=== PATIENT | female | born 1940 | race African-American/Black ===

== ENCOUNTER 2016-05-30 12:00 | Inpatient (IN) | payer OTHER ==
--- NOTE | ~2016-05-30 | DS ---
Unit #: [id number] #: [id number] Patient: DARIO DAVIS [id number] [address] [address] [id number] I MR#: [id number] NAME: DARIO DAVIS ROOM: 574 Age: 75 Sex: F Admission Date: 05/30/2016 : 1940 Discharge Date: Attending Physician: Maylin Gant M.D. Primary Care Physician: [facility] DISCHARGE SUMMARY ADDENDUM ADDITIONAL DISCHARGE DIAGNOSIS Paroxysmal atrial flutter. HOSPITAL COURSE The patient was maintained in the hospital awaiting precertification. While sleeping last night, she developed atrial flutter which was rate controlled. She spontaneously flipped back to normal sinus rhythm. This was discussed with Dr. Manriquez and we are going to add flecainide 50 mg q.12 hours in addition to Eliquis 5 mg p.o. b.i.d. She needs evaluation for underlying obstructive sleep apnea which is most likely her risk factor for atrial flutter. She will be discharged back to the longterm on previously dictated meds in addition to flecainide and Eliquis. Dictated by... Maylin Gant M.D. MAGGY/chris TD: 06/03/2016 08:10 JOB #: [id number] DISCHARGE SUMMARY Page 1 of 1 X Maylin Gant MD X DISCHARGE SUMMARY
--- NOTE | ~2016-05-30 | EKG ---
PATIENT: DARIO DAVIS UNIT #: [id number] Ventricular Rate: 79 BPM Atrial Rate: 79 BPM P-R Interval: 180 ms QRS Duration: 94 ms Q-T Interval: 378 ms QTC Calculation(Bezet): 433 ms P [place]: 45 degrees Calculated R [place]: 113 degrees Calculated T [place]: 37 degrees Diagnosis Line: Normal sinus rhythm Diagnosis Line: Left posterior fascicular block Diagnosis Line: ST and T wave abnormality, consider anterolateral Diagnosis Line: ischemia Diagnosis Line: Abnormal ECG Diagnosis Line: When compared with ECG of 30-MAY-2016 12:37, Diagnosis Line: No significant change was found Diagnosis Line: Confirmed by KENNEY DALEY MD ([id number]) on Diagnosis Line: 05/31/2016 3:58:03 PM INTERPRETING MD: ADRIAN
--- NOTE | ~2016-05-30 | EKG ---
PATIENT: DARIO DAVIS UNIT #: [id number] Ventricular Rate: 66 BPM Atrial Rate: 66 BPM P-R Interval: 180 ms QRS Duration: 90 ms Q-T Interval: 396 ms QTC Calculation(Bezet): 415 ms P [place]: 55 degrees Calculated R [place]: 109 degrees Calculated T [place]: 11 degrees Diagnosis Line: Normal sinus rhythm Diagnosis Line: Rightward axis Diagnosis Line: T wave abnormality, consider anterior ischemia Diagnosis Line: Abnormal ECG Diagnosis Line: When compared with ECG of 01-JUN-2016 05:45, Diagnosis Line: No significant change was found Diagnosis Line: Confirmed by ANTONI WINTER MD ([id number]) on 06/03/2016 Diagnosis Line: 7:05:55 PM INTERPRETING MD: MAGGY PARK
--- NOTE | ~2016-05-30 | CT4 ---
[facility] A Service of [facility] RADIOLOGY TEXT RESULTS PATIENT: DARIO DAVIS LOCATION: [facility] 574-01 : [birth year] UNIT #: [id number] AGE: [address]: Maylin Gant MD SEX: F ORDER DR: [id number] [facility] [address] [place], [place] [address] [id number] I MR#: [id number] Acc #: [id number] NAME: DARIO DAVIS : 1940 SEX: F STUDY DATE/TIME: 05/30/2016 11:34 UNIT: [facility] ROOM: 4 STUDY DESCRIPTION: CT Abd and Pelv Wo Cont Attending Physician: Mattie Velazquez M.D. Ordering Physician: Wenceslao Cardoso M.D. Primary Care Physician: [facility] MEDICAL IMAGING REPORT This report is preliminary unless electronic signature is present EXAM CT of the abdomen and pelvis without contrast INDICATION Vomiting for 8 hours. No bowel sounds. No ostomy output for [address] images were obtained from the dome of the diaphragm through the symphysis pubis. No oral or intravenous contrast material was administered. This CT examination was performed with one or more of the following radiation dose reduction techniques: automatic exposure control, adjustment of mA and/or kV according to patient size, and iterative reconstruction. FINDINGS Images through the lung bases demonstrate some background emphysematous changes. Main pulmonary artery is enlarged measuring up to 3.5 cm. This finding is nonspecific but can be seen in the setting of pulmonary arterial hypertension. There is a small hiatal hernia. Proximal small bowel is within normal limits. Gallbladder is surgically absent. Spleen and liver appear unremarkable given unenhanced technique. Right kidney also appears normal given unenhanced technique. Left kidney is not visualized. Pancreas is mildly atrophic. No free fluid or adenopathy is seen within the abdomen or pelvis. Uterus is surgically absent. Urinary bladder appears unremarkable. There is a left lower quadrant colostomy although I do not see any evidence of obstruction. There is a large parastomal hernia which contains loops of what I think are probably small bowel but again I do not see any convincing evidence of obstruction. No pneumatosis or free air is seen. Patient also has a bowel containing umbilical hernia again without convincing evidence of obstruction. [facility] A Service of [facility] RADIOLOGY TEXT RESULTS PATIENT: DARIO DAVIS LOCATION: [facility] 574-01 : 44 UNIT #: [id number] AGE: [address]: Maylin Gant MD SEX: F ORDER DR: Review of bony windows demonstrates fairly advanced degenerative changes involving the right hip. No aggressive osseous abnormalities are seen. IMPRESSION 1. Left lower quadrant ostomy without convincing evidence of obstruction. Patient does have a large parastomal hernia which appears to contain loops of small bowel, again without any evidence of obstruction. 2. Patient also has a small bowel containing umbilical hernia again without any evidence of obstruction. 3. Colonic diverticulosis without evidence of diverticulitis. 4. Left kidney is absent. 5. Small hiatal hernia. 6. Enlargement of the main pulmonary artery which can be seen in the setting of pulmonary arterial hypertension. 7. Changes of prior cholecystectomy and appendectomy. Dictated by... Izabella Hanson M.D. THIS IS AN ELECTRONICALLY VERIFIED REPORT Izabella Hanson M.D. at 06/02/2016 1:00 PM CHAYO/chidi TD: 05/31/2016 06:55 JOB #: [id number] MEDICAL IMAGING REPORT Page 1 of 1 COPY
--- NOTE | ~2016-05-30 | BMI ---
[facility] Nutrition Therapy DATE: 06/01/16 Patient: DARIO DAVIS Physician: ZEFERINO Address: [address] [facility] [facility] Room/Bed: [address] [place] [address], Zip: [place] [address] Admit Date: 05/30/16 Date of : [birth year] Height: 5 3 Weight: 317 144.1 HIGH BMI NOTE: DX: 75 yo female admitted for N/V ANTHROPOMETRICS: Ht: 5'3" Wt: 144.1 kg (317#) BMI: 56.3 DIET: Clear liquid INTERVENTION: 1. Clear liquid RECOMMENDATIONS: 1. Once medically feasible, advance diet as tolerated to healthy heart to promote gradual weight loss towards healthy BMI. RD will f/u per protocol. Respectfully, Emelia Zhang, Tool Repair Technician Jose Pascal MS, RD, LD [facility] cc: client file
--- NOTE | ~2016-05-30 | CO ---
Unit #: [id number] #: [id number] Patient: DARIO DAVIS [id number] [address] [place], [place] [address] [id number] I MR#: [id number] NAME: DARIO DAVIS ROOM: 574 Age: 75 Sex: F Admission Date: 05/30/2016 : 1940 Attending Physician: Mattie Velazquez M.D. Primary Care Physician: [facility] Consultation Date: 05/31/2016 CONSULTATION REPORT REASON FOR CONSULTATION Abnormal EKG, elevated troponin. HISTORY OF PRESENT ILLNESS This is a 75-year-old female with history of immobility syndrome. She is currently residing at [facility]. She had a diverting colostomy for a sacral wound a couple of years ago. She is morbid obese with a weight of 317 pounds. She has degenerative joint disease. Her last echo a couple of years ago, showed LVEF of 55%. She has hypertension, hyperlipidemia, reformed smoker. She was sent from the long term for a 2-day history of nausea, vomiting, and mid epigastric discomfort. She has colostomy and there had not been a bowel movement for 2 days, but she stated that on the way to the emergency room by EMS that she had a fairly good bowel movement. The patient denies any substernal chest pain. No pain in her neck; bilateral jaws, shoulders, arms, or elbow. She denies any palpitations. No dizziness, presyncope, or syncope. In the emergency room, the patient's blood pressure was 168/100, heart rate was 88, respirations 18, temperature 97.5. The patient had a CT of abdomen and pelvis that showed a parastomal hernia with no evidence of bowel obstruction. Also on admission the patient's BUN is 23, creatinine 1.3, and potassium was 6.3. The patient was given calcium gluconate, amp of bicarbonate, 15 g of Kayexalate, 10 units of insulin, and was also treated with some albuterol and Lasix in the emergency room. The patient's baseline creatinine noted was back a couple of years ago was 0.7. The patient's cardiac enzymes came back elevated with a CK total 174 and troponin 0.17, CK total 129, percentage of MB is 2.8, and troponin 0.13. The patient's EKG shows normal sinus rhythm with left anterior fascicular block with T-wave inversion throughout V1 through V6 and also in the inferior leads. Cardiology has been consulted to assist with evaluation and management. PAST MEDICAL HISTORY 1. History of immobility syndrome, she is a long term resident. 2. History of sacral decubitus ulcer with extensive debridement and had a diverting colostomy. 3. Degenerative joint disease. 4. History of left nephrectomy at age 4. 5. Hypertension. 6. Hyperlipidemia. 7. In 03/2013, 2D echo, LVEF of 55% with mild left ventricular hypertrophy, mild tricuspid regurgitation, elevated RVSP of 30 to 40 mmHg. 8. Wheelchair bound. Unit #: [id number] #: [id number] Patient: DARIO DAVIS 9. Reformed smoker. 10. Morbid obesity with weight of 317 pounds with a BMI of 56. PAST SURGICAL HISTORY 1. In 2013 had wide debridement and followed by wide debridement of a stage IV sacral decubitus ulcer with exploratory laparotomy and sigmoid loop colostomy. 2. Total abdominal hysterectomy. 3. Cholecystectomy. 4. Left nephrectomy at age 4. HOME MEDICATIONS Celebrex 100 mg p.o. daily, chlorophyll 0.6 three tablets at bedtime, Flonase 16 g nasally b.i.d., Lasix 20 mg p.o. daily, hydrocodone and acetaminophen 5/325 one tablet p.o. t.i.d., Claritin 10 mg p.o. at bedtime, MAGnesium-Oxide 420 mg p.o. daily, [place] nasal spray inhalation b.i.d., simethicone 125 mg p.o. daily, vitamin minerals one tablet p.o. daily, hydrocodone and acetaminophen 5/325 one tablet p.o. every 8 hours for breakthrough pain p.r.n., MiraLax p.r.n., albuterol sulfate inhalation every 4 hours p.r.n., ipratropium and albuterol inhalation every 4 hours p.r.n. ALLERGIES No known drug allergies. SOCIAL HISTORY The patient currently is residing at [facility]. She is pretty much chair and wheelchair bound. She says she does get up with assistance only. She has immobility syndrome. She quit smoking a few years back. No alcohol or illicit drug abuse. FAMILY HISTORY Her mother had diabetes. She is an only child. Her father, she is not sure of his health issues. REVIEW OF SYSTEMS See details in HPI. PHYSICAL EXAMINATION GENERAL: Ms. Davis is a 75-year-old female, in no acute respiratory distress. She is awake, alert, answers most questions appropriately. VITAL SIGNS: Blood pressure is 144/86, heart rate 68, respirations 18, temperature 98.0, O2 saturations 97% on room air. NECK: Trachea midline. No thyromegaly or lymphadenopathy. Normal carotid upstrokes. No jugular venous distention. HEART: S1, S2. Regular rate and rhythm. No clicks, murmurs, or rubs. LUNGS: Diminished due to body habitus. ABDOMEN: Obese, soft, hypoactive bowel sounds are present in lower quadrants. Colostomy noted, has a small amount of dark brown stool. EXTREMITIES: Pedal pulses are palpable. 1+ pedal edema. DIAGNOSTIC STUDIES LABORATORY RESULTS: Glucose is 140, BUN 22, creatinine 1.1, eGFR is 57.7, sodium 141, potassium 5.0, chloride is 99, CO2 of 34, and calcium is 8.3. Magnesium is 2.1, total protein 7.3, albumin 3.5, bilirubin total 0.5, AST 31, ALT 27, alkaline phosphatase is 94. WBCs is 11.1, hemoglobin 10.9, hematocrit 36.3, and platelets is 148. Initial cardiac enzymes are Unit #: [id number] #: [id number] Patient: DARIO DAVIS pending. Urinalysis, trace of leuk esterase, trace of protein, 0.2 urobilinogen, 1+ blood, 5 to 10 wbc's. Initial cardiac enzymes are her CK total is 174, MB is 4.2, percentage of MB 2.4, and troponin 0.17. CK total is 129, MB is 3.6, percentage of MB 2.8, troponin 0.13. Urine culture is pending. IMAGING STUDIES: Chest x-ray, preliminary report, unremarkable. Her CT of abdomen and pelvis shows a left lower quadrant ostomy without evidence of obstruction, does have a large parastomal hernia. No evidence of obstruction, small bowel contained umbilical hernia without any evidence of obstruction. Colonic diverticulosis, left kidney is absent. Enlargement of the main pulmonary artery which can be seen in the setting of pulmonary artery hypertension and small hiatal hernia. CARDIOVASCULAR STUDIES: EKG shows normal sinus rhythm with ventricular rate 84 beats per minute, left anterior fascicular block, ST-T wave abnormalities, T-wave inversion in anterolateral and inferior leads. IMPRESSION 1. Elevated troponin, acute coronary syndrome. 2. Abnormal EKG. 3. Nausea, vomiting, and absent stool from colostomy. 4. Hyperkalemia. 5. History of hypertension. 6. Hyperlipidemia. 7. Immobility syndrome, long term patient. 8. Solitary kidney. 9. Left ventricular ejection fraction of 55% with 2D echo in 2014 with mild left ventricular hypertrophy, mild tricuspid regurgitation. 10. Morbid obesity, weight 317 pounds. 11. Reformed smoker. PLAN 1. Cardiology consult to assist with evaluation and management. She has acute coronary syndrome, the patient started on aspirin 81 mg p.o. daily. So far, the patient had some stool since admission, she has positive bowel sounds in the lower quadrants and she said her nausea and vomiting are improving. 2. We will also add Lovenox 120 mg p.o. daily for therapeutic dosing. We will add beta-bakari, metoprolol 25 mg p.o. b.i.d. for better blood pressure control and also beta-bakari for possible CAD. 3. We will obtain a TSH and fasting lipid profile and evaluate. 4. On exam, the patient has no signs or symptoms of angina; however, with her abnormal EKG and her troponin, the patient suggests that the patient have ischemic heart disease workup. Discussed at length with the patient about heart catheterization. Discussed with the patient about risks and benefits including risk of bleeding, myocardial infarction, stroke, and even . The patient wants to think about it and talk to her daughter and make a decision later. 5. Encourage the patient to lose weight. We recommend a weight reducing calorie count diet and low cholesterol diet. 6. The patient's hyperkalemia has been treated and her latest potassium is 5.0. 7. On exam, there are no signs or symptoms of acute congestive heart failure. Unit #: [id number] #: [id number] Patient: DARIO DAVIS 8. Further recommendations pending per Dr. Mendoza. Dictated by... Tiff Raymundo A.P.R.N. KAMILLE/josseline TD: 06/01/2016 02:29 JOB #: [id number] CONSULTATION REPORT Page 1 of 1 X Tiff Raymundo APRN CONSULTATION REPORT
--- NOTE | ~2016-05-30 | EKG ---
PATIENT: DARIO DAVIS UNIT #: [id number] Ventricular Rate: 66 BPM Atrial Rate: 66 BPM P-R Interval: 184 ms QRS Duration: 94 ms Q-T Interval: 412 ms QTC Calculation(Bezet): 431 ms P [place]: 48 degrees Calculated R [place]: 105 degrees Calculated T [place]: -3 degrees Diagnosis Line: Normal sinus rhythm Diagnosis Line: Rightward axis Diagnosis Line: ST and T wave abnormality, consider anterolateral Diagnosis Line: ischemia Diagnosis Line: Abnormal ECG Diagnosis Line: When compared with ECG of 31-MAY-2016 09:20, Diagnosis Line: No significant change was found Diagnosis Line: Confirmed by ANTONI WINTER MD ([id number]) on 06/02/2016 Diagnosis Line: 5:33:43 AM INTERPRETING MD: MAGGY PARK
--- NOTE | ~2016-05-30 | EKG ---
PATIENT: DARIO DAVIS UNIT #: [id number] Ventricular Rate: 86 BPM Atrial Rate: 86 BPM P-R Interval: 186 ms QRS Duration: 84 ms Q-T Interval: 368 ms QTC Calculation(Bezet): 440 ms P [place]: 45 degrees Calculated R [place]: 118 degrees Calculated T [place]: 28 degrees Diagnosis Line: Normal sinus rhythm Diagnosis Line: Left posterior fascicular block Diagnosis Line: ST and T wave abnormality, consider anterolateral Diagnosis Line: ischemia Diagnosis Line: Abnormal ECG Diagnosis Line: When compared with ECG of 16-JAN-2014 18:38, Diagnosis Line: Left posterior fascicular block is now Present Diagnosis Line: T wave inversion now evident in Anterolateral Diagnosis Line: leads Diagnosis Line: Confirmed by MAGGY PARK, ANTONI ([id number]) on 05/31/2016 Diagnosis Line: 7:18:32 AM INTERPRETING MD: MAGGY PARK
--- NOTE | ~2016-05-30 | HP ---
Unit #: [id number] #: [id number] Patient: DARIO DAVIS [id number] [place], [place] [address] [id number] E MR#: [id number] NAME: DARIO DAVIS ROOM: Age: 75 Sex: F Admission Date: 05/30/2016 : 1940 Attending Physician: Wencelsao Cardoso M.D. Primary Care Physician: Ivelisse Christiansonmiriam hospitallayne [facility] HISTORY AND PHYSICAL CHIEF COMPLAINT Vomiting, no bowel sounds, no output from colostomy times 2 days. HISTORY OF PRESENT ILLNESS The patient is a 75-year-old female with past medical history of sacral decubitus ulcer, immobility, degenerative joint disease, who presented to the emergency department from the long term for evaluation of the above. The patient has had a 3-day history of vomiting. She reports three bouts of nonbloody emesis within the past 24 hours. She denies any abdominal pain. She has not had any ostomy output. She denies any fever. No cough or cold symptoms. No urinary symptoms. In the emergency department, a CT of the abdomen and pelvis was done and showed parastomal hernia with no evidence of bowel obstruction. Laboratory notable for potassium of 6.3, BUN 23, creatinine 1.3. She is being admitted to [facility] for evaluation and further treatment. PAST MEDICAL HISTORY 1. Admission to [facility] 01/16 through 01/31/2014 for large infected stage 4 sacral decubitus ulcer. She underwent wide debridement and saucerization followed by exploratory laparotomy, sigmoid loop colostomy. 2. Immobility. 3. Degenerative joint disease. 4. Echocardiogram, 01/17/2014, was technically limited but showed an ejection fraction of 55% with mild concentric left ventricular hypertrophy, mild tricuspid regurgitation, elevated right ventricular systolic pressure at 30-40 mmHg. PAST SURGICAL HISTORY 1. Left nephrectomy. 2. Cholecystectomy. 3. Total abdominal hysterectomy. 4. Wide debridement and saucerization of sacral decubitus ulcer followed by exploratory laparotomy and sigmoid loop colostomy. ALLERGIES No known allergies. HOME MEDICATIONS 1. Celebrex. 2. Chlorophyll. Unit #: [id number] #: [id number] Patient: DARIO DAVIS 3. Flonase. 4. Lasix. 5. Hydrocodone. 6. Claritin. 7. Magnesium. 8. [place] Nasal [place]. 9. Simethicone. 10. Multivitamin. 11. MiraLAX. 12. Albuterol. 13. DuoNeb. Home medications will need to be reviewed and verified. SOCIAL HISTORY The patient is at a long term. She has a wheelchair and a walker. There is no alcohol use. She is a former smoker. Her code status is a FULL CODE. FAMILY HISTORY Notable for her mother having diabetes. REVIEW OF SYSTEMS A complete review of systems is negative except as indicated in the HPI. PHYSICAL EXAMINATION VITAL SIGNS: Temperature 97.5, pulse 88, respirations 21, blood pressure 168/103. GENERAL: The patient is an female who is awake and alert in no acute distress. HEENT: Head is atraumatic. Mucous membranes are dry. NECK: Supple. Trachea is midline. LUNGS: Clear to auscultation bilaterally with no increased work of breathing. HEART: Regular rate and rhythm. ABDOMEN: Soft, nontender with decreased bowel sounds. There is a colostomy bag in place with no stool. EXTREMITIES: Nontender with no pedal edema. NEUROLOGIC: Patient is awake and alert. She is oriented x3. She follows commands. PSYCHIATRIC: Mood and affect are normal. Patient is cooperative. SKIN: The sacral area demonstrates a large defect that appears to be healing. DIAGNOSTIC STUDIES LABORATORY: Comprehensive metabolic panel notable for potassium 6.3, chloride 98, glucose 170, BUN 23, creatinine 1.3, alkaline phosphatase 113. Amylase and lipase are normal. Complete blood count notable for white blood cell count of 11.5, hemoglobin 11.7, hematocrit 38.6. IMAGING: CT of the abdomen and pelvis shows a parastomal hernia with no evidence of obstruction. ASSESSMENT The patient is a 75-year-old female with: 1. Nausea and vomiting. 2. Hyperkalemia with a potassium of 6.3. The patient received calcium gluconate, an amp of bicarbonate, 15 grams of Kayexalate, 10 units of Unit #: [id number] #: [id number] Patient: DARIO DAVIS insulin as well as albuterol and Lasix in the emergency department. Additionally, she received a 1 L normal saline bolus. 3. Acute kidney injury. The patient's creatinine was 0.7 on 01/30/2014, it is 1.3 today. 4. History of sacral decubitus ulcer, status post wide debridement, saucerization and sigmoid loop colostomy. 5. Immobility. 6. Degenerative joint disease. PLAN 1. Admit to intermediate level for observation. 2. Advance diet to clear liquids as tolerated. 3. Normal saline at 75 mL per hour. 4. P.r.n. Zofran. 5. Repeat BMP later this evening to follow up hyperkalemia. 6. Check EKG and cardiac enzymes. 7. Urinalysis with culture and sensitivity. 8. Strict I's and O's. 9. SCDs for DVT prophylaxis. 10. Check magnesium level. 11. P.r.n. hydralazine. 12. Repeat labs in the morning. 13. Regarding CODE STATUS, the patient is a FULL CODE. 14. Additional workup and consultants based on above. Dictated by Serafin Londono/[place] TD: 05/30/2016 16:48 JOB #: [id number] HISTORY AND PHYSICAL Page 1 of 1 X Mattie Velazquez MD X HISTORY AND PHYSICAL
--- NOTE | ~2016-05-30 | DS ---
Unit #: [id number] #: [id number] Patient: DARIO JUDD [id number] [address] [address] [id number] I MR#: [id number] NAME: DARIO JUDD ROOM: 574 Age: 75 Sex: F Admission Date: 05/30/2016 : 1940 Discharge Date: 06/02/2016 Attending Physician: Maylin Gant M.D. Primary Care Physician: [facility] DISCHARGE SUMMARY PRINCIPAL DIAGNOSES 1. Acute coronary syndrome with negative left-sided heart catheterization. 2. Hyperkalemia, resolved. 3. Nausea and vomiting, likely secondary to reflux. 4. Decreased ostomy output, resolved spontaneously. 5. Hypertension. 6. Chronic thrombocytopenia. Discharge platelet count 130,000. 7. Acute kidney injury, prerenal. Discharge creatinine 1.0. 8. Normocytic anemia. 9. Chronic immobility. 10. Morbid obesity. 11. Probable obstructive sleep apnea. 12. Degenerative joint disease. 13. History of infected stage 4 sacral decubitus ulcer. 14. Hyperlipidemia. CONSULTANTS Dr. Manriquez, cardiology. PROCEDURES PERFORMED Left-sided heart catheterization on 06/02/2016, which was normal. DIAGNOSTIC DATA IMAGING: CT scan of the abdomen and pelvis without contrast on 05/30/2016 with left lower quadrant ostomy without evidence of obstruction. Parastomal hernia is noted. Diverticulosis noted. Absent left kidney noted. Enlargement of main pulmonary artery, consistent with pulmonary arterial hypertension. CLINICAL HISTORY/HOSPITAL COURSE Ms. Judd is a very nice 75-year-old female sent from the rehab facility with nausea, vomiting and poor output from her colostomy site. Please refer to history and physical for further details. CT scan of the abdomen and pelvis in the emergency department had findings as noted. In the emergency room she was also found to have a potassium of 6.3 and a mild elevation of creatinine of 1.3. She was subsequently admitted. In regard to the patient's nausea and vomiting, she was placed on PPI therapy. She began having spontaneous output from her ostomy site. The nausea and vomiting have resolved. Will continue her on PPI therapy, given she is high risk for reflux and otherwise continue on medications for output from her ostomy as noted. Unit #: [id number] #: [id number] Patient: DARIO JUDD Due to her complaints of nausea, the patient did have a troponin checked in the emergency department and it returned at 0.17. It trended down on day prior to discharge at 0.10. She has multiple risk factors for coronary artery disease and, thus, cardiology was consulted. Ultimately the patient underwent heart catheterization which did not reveal any significant blockage. We will continue her on medical therapy. The patient also developed some mild acute kidney injury during hospitalization, which appears to be prerenal. On day of discharge creatinine is now 1.0. She will be discharged back to the facility today. DISCHARGE CONDITION Stable. DISPOSITION Discharge to rehab. DISCHARGE MEDICATIONS 1. Duo-neb nebulizer treatments q.4 h. p.r.n. shortness of breath. 2. Magnesium oxide 420 mg p.o. daily. 3. Flonase 0.05% nasal spray, 1 spray per nostril b.i.d. 4. Simethicone 125 mg p.o. daily. 5. Claritin 10 mg daily. 6. Metoprolol tartrate 25 mg b.i.d. 7. MiraLAX 17 g p.o. daily p.r.n. constipation. 8. Lasix 20 mg p.o. daily. 9. Lipitor 80 mg daily. 10. Aspirin 81 mg daily. 11. Colbert 5/325 mg 1 tablet p.o. t.i.d. p.r.n. pain. 12. Protonix 40 mg daily. 13. Chlorophyl 0.6 three tablets at bedtime for colostomy odor. 14. [place] Nasal [place] 2 sprays per nostril b.i.d. 15. Daily multivitamin. DISCHARGE INSTRUCTIONS The patient was instructed to follow a heart-healthy diet. ACTIVITY She can increase her increase her activity as tolerated. Will continue ostomy care as she was doing previously. FOLLOWUP 1. The patient will follow up with Dr. Manriquez in approximately three months. 2. She will follow up with her primary care provider in two to three weeks. Dictated by... Maylin Gant M.D. Evelyne TD: 06/02/2016 14:03 JOB #: [id number] Unit #: [id number] #: [id number] Patient: DARIO JUDD DISCHARGE SUMMARY Page 1 of 1 X Maylin Gant MD X DISCHARGE SUMMARY
[2016-05-30 11:40] LABS: BASOPHIL% 0.2 % (0-2.5); HEMATOCRIT 38.6 % (35.0-45.0); HEMOGLOBIN 11.7 gm/dL (12.0-16.0); LYMPHOCYTE# 0.9 X10e3 (1.0-3.5); LYMPHOCYTE% 8.1 % (17.0-45.0); MEAN CELL VOLUME 80.2 FL (83-96); MEAN CORPUSCULAR HEMOGLOBIN 24.3 PG (28-34); MEAN CORPUSCULAR HGB CONC 30.4 g/dL (30-36); MEAN PLATELET VOLUME 9.5 FL (6.5-11.5); MONOCYTE# 0.5 X10e3 (0-1.0); MONOCYTE% 3.9 % (3.0-12.0); NEUTROPHIL# 10.1 X10e3 (1.5-7.1); NEUTROPHIL% 87.8 % (40-75); PLATELET COUNT 155 X10e3 (140-420); RED BLOOD COUNT 4.82 X10e (3.90-5.30); RED CELL DISTRIBUTION WIDTH 15.8 % (11.0-15.5); WHITE BLOOD COUNT 11.5 X10e3 (4.0-10.5)
[2016-05-30 11:42] LABS: DIFF IND YES
[~2016-05-30 12:00] MED LIST: HCTZ PO; NORVASC PO
[2016-05-30 12:13] LABS: ALBUMIN SERUM 3.9 g/dL (3.5-5.0); BILIRUBIN, DIRECT 0.1 mg/dL (0.0-0.2); BILIRUBIN,INDIRECT 0.5 mg/dL (0.0-0.9); BILIRUBIN,TOTAL 0.6 mg/dL (0.2-2.0); BUN/CREATININE RATIO 17.69; CALCIUM SERUM 8.9 mg/dL (8.4-10.2); CREATININE SERUM 1.3 mg/dL (0.6-1.4); GLOM FILT RATE Estimated 47.1 mL/min (>60); PROTEIN TOTAL SERUM 8.2 g/dL (6.0-8.3)
[2016-05-30 12:14] LABS: POTASSIUM 6.3 mmol/L (3.5-5.1)
[2016-05-30 12:18] LABS: PLATELET ESTIMATE NORMAL (NORMAL)
[2016-05-30] MEDS ORDERED: CELEBREX100 MG PO (13:12)
[2016-05-30] MEDS ORDERED: CHLOROPHYLL (13:22)
[2016-05-30] MEDS ORDERED: FLONASE 0.05% N16 G1 (13:24)
[2016-05-30] MEDS ORDERED: HYDROCODON-ACE1 EAC7 PO ×2 (13:24→13:28)
[2016-05-30] MEDS ORDERED: LASIX20 MG PO (13:24)
[2016-05-30] MEDS ORDERED: CLARITIN10 M3 PO (13:25)
[2016-05-30] MEDS ORDERED: MAGNESIUM OXID420 MG PO (13:25)
[2016-05-30] MEDS ORDERED: OCEAN NASAL SPRAY INH (13:26)
[2016-05-30] MEDS ORDERED: GAS RELIEF125 MG PO (13:26)
[2016-05-30] MEDS ORDERED: VITAMINS PO (13:27)
[2016-05-30] MEDS ORDERED: MINERALS PO (13:27)
[2016-05-30] MEDS ORDERED: MIRALAX119 GM PO (13:28)
[2016-05-30] MEDS ORDERED: IPRAT-ALBUT 0.5-3 ML INH (13:30)
[2016-05-30] MEDS ORDERED: ALBUTEROL1.25 MG/3 INH (13:30)
[2016-05-30 15:27] LABS: URINE SOURCE CLEAN CATCH
[2016-05-30 15:34] LABS: URINE APPEARANCE CLEAR; URINE BILIRUBIN NEG (NEG); URINE BLOOD 1+ (NEG); URINE COLOR YELLOW; URINE GLUCOSE NEG (NEG); URINE KETONE NEG (NEG); URINE LEUKOCYTE ESTERASE TRACE (NEG); URINE NITRATE NEG (NEG); URINE PH 5.5 (5-8); URINE PROTEIN TRACE (NEG); URINE SPECIFIC GRAVITY 1.007 (1.003-1.035); URINE UROBILINOGEN 0.2 MG/DL (NEG)
[2016-05-30 15:37] LABS: CULTURE INDICATED? YES; U HYALINE CASTS AUWI 0-2 /[LPF]; URINE BACTERIA AUWI NEG (NEGATIVE); URINE SQUAMOUS EPITHELIAL CELL OCC /[HPF]
[2016-05-30 17:48] LABS: %MB 2.4 % (0.0-4.0); MB 4.2 ng/ml
[2016-05-30 18:40] LABS: BUN/CREATININE RATIO 15.71; CALCIUM SERUM 8.6 mg/dL (8.4-10.2); CREATININE SERUM 1.4 mg/dL (0.6-1.4); GLOM FILT RATE Estimated 43.1 mL/min (>60); POTASSIUM 5.4 mmol/L (3.5-5.1)
[2016-05-31 01:38] LABS: %MB 2.6 % (0.0-4.0); MB 3.8 ng/ml
[2016-05-31 07:47] LABS: HEMATOCRIT 36.3 % (35.0-45.0); HEMOGLOBIN 10.9 gm/dL (12.0-16.0); MEAN CELL VOLUME 80.1 FL (83-96); MEAN CORPUSCULAR HEMOGLOBIN 24.1 PG (28-34); MEAN CORPUSCULAR HGB CONC 30.1 g/dL (30-36); MEAN PLATELET VOLUME 9.2 FL (6.5-11.5); RED BLOOD COUNT 4.54 X10e (3.90-5.30); RED CELL DISTRIBUTION WIDTH 15.9 % (11.0-15.5); WHITE BLOOD COUNT 11.1 X10e3 (4.0-10.5)
[2016-05-31 08:25] LABS: ALBUMIN SERUM 3.5 g/dL (3.5-5.0); BILIRUBIN,TOTAL 0.5 mg/dL (0.2-2.0); CALCIUM SERUM 8.3 mg/dL (8.4-10.2); CREATININE SERUM 1.1 mg/dL (0.6-1.4); GLOM FILT RATE Estimated 57.7 mL/min (>60); PROTEIN TOTAL SERUM 7.3 g/dL (6.0-8.3)
[2016-05-31 08:45] LABS: %MB 2.8 % (0.0-4.0); MB 3.6 ng/ml
[2016-05-31 10:35] LABS: CHOLESTEROL 179 mg/dL (0-200); HDL CHOLESTEROL 43 mg/dL (35-95); LDL CHOLESTEROL 119 mg/dL (-130); LDL/HDL RATIO 3 RATIO (0-4); TRIGLYCERIDES 87 mg/dL (10-160)
[2016-06-01 05:17] LABS: HEMATOCRIT 34.6 % (35.0-45.0); HEMOGLOBIN 10.7 gm/dL (12.0-16.0); MEAN CELL VOLUME 79.6 FL (83-96); MEAN CORPUSCULAR HEMOGLOBIN 24.6 PG (28-34); MEAN CORPUSCULAR HGB CONC 30.8 g/dL (30-36); MEAN PLATELET VOLUME 8.9 FL (6.5-11.5); RED BLOOD COUNT 4.34 X10e (3.90-5.30); RED CELL DISTRIBUTION WIDTH 15.4 % (11.0-15.5); WHITE BLOOD COUNT 8.8 X10e3 (4.0-10.5)
[2016-06-01 06:47] LABS: BUN/CREATININE RATIO 25.55; CALCIUM SERUM 7.9 mg/dL (8.4-10.2); CREATININE SERUM 0.9 mg/dL (0.6-1.4); GLOM FILT RATE Estimated 73.6 mL/min (>60); POTASSIUM 4.5 mmol/L (3.5-5.1)
[2016-06-02 05:36] LABS: HEMATOCRIT 34.3 % (35.0-45.0); HEMOGLOBIN 10.5 gm/dL (12.0-16.0); MEAN CORPUSCULAR HEMOGLOBIN 24.6 PG (28-34); MEAN CORPUSCULAR HGB CONC 30.7 g/dL (30-36); MEAN PLATELET VOLUME 9.3 FL (6.5-11.5); RED BLOOD COUNT 4.28 X10e (3.90-5.30); RED CELL DISTRIBUTION WIDTH 15.5 % (11.0-15.5); WHITE BLOOD COUNT 8.8 X10e3 (4.0-10.5)
[2016-06-02 06:21] LABS: INR 1.6; PARTIAL THROMBOPLASTIN TIME 32.2 SECONDS (23.5-31.3); PROTHROMBIN TIME (PATIENT) 17.7 SECONDS (9.6-11.5)
[2016-06-02 08:48] LABS: CALCIUM SERUM 8.1 mg/dL (8.4-10.2); GLOM FILT RATE Estimated 64.8 mL/min (>60)
== END 2016-06-03 20:33 | DRG 287 ==
LOC: CED 12:00 → CEDOF 15:15 → C5C 22:51
PROVIDERS: Emergency Medicine; Family Medicine; Internal Medicine Cardiovascular Disease
PROC: 4A023N7 Measurement of Cardiac Sampling and Pressure, Left Heart, Percutaneous Approach (ICD-10-PCS; principal; 2016-06-02)
PROC: B2151ZZ Fluoroscopy of Left Heart using Low Osmolar Contrast (ICD-10-PCS; 2016-06-02)
PROC: B2111ZZ Fluoroscopy of Multiple Coronary Arteries using Low Osmolar Contrast (ICD-10-PCS; 2016-06-02)
DX: I24.9 Acute ischemic heart disease, unspecified (principal); N17.9 Acute kidney failure, unspecified; D69.6 Thrombocytopenia, unspecified; I48.92 Unspecified atrial flutter; Z68.43 Body mass index [BMI] 50.0-59.9, adult; E87.5 Hyperkalemia; K21.9 Gastro-esophageal reflux disease without esophagitis; I10 Essential (primary) hypertension; J44.9 Chronic obstructive pulmonary disease, unspecified; E66.01 Morbid (severe) obesity due to excess calories; G47.33 Obstructive sleep apnea (adult) (pediatric); Z90.5 Acquired absence of kidney; K43.5 Parastomal hernia without obstruction or gangrene; Z90.49 Acquired absence of other specified parts of digestive tract; R11.2 Nausea with vomiting, unspecified; M62.3 Immobility syndrome (paraplegic); Z99.3 Dependence on wheelchair
CPT/HCPCS: 74176; 80048; 80053; 80061; 80076; 81003; 82150; 82550; 82553; 82947; 83690; 83735; 84443; 84484; 85025; 85027; 85610; 85730; 87086; 93005; 94640; 94760; 96361; 96374; 99291; C1769; C1887; C1894; J0610; J1644; J1650; J1940; J2250; J2405; J3010

== ENCOUNTER 2016-06-14 13:20 | Inpatient (IN) | payer OTHER ==
--- NOTE | ~2016-06-14 | EKG ---
PATIENT: ADRIO DAVIS UNIT #: [id number] Ventricular Rate: 78 BPM Atrial Rate: 78 BPM P-R Interval: 192 ms QRS Duration: 94 ms Q-T Interval: 394 ms QTC Calculation(Bezet): 449 ms P [place]: 48 degrees Calculated R [place]: 114 degrees Calculated T [place]: -31 degrees Diagnosis Line: Normal sinus rhythm Diagnosis Line: Right axis deviation Diagnosis Line: T wave abnormality, consider inferior ischemia Diagnosis Line: T wave abnormality, consider anterolateral Diagnosis Line: ischemia Diagnosis Line: Abnormal ECG Diagnosis Line: When compared with ECG of 14-JUN-2016 13:14, Diagnosis Line: [place] interval has decreased Diagnosis Line: Questionable change in QRS duration Diagnosis Line: Confirmed by GRAY MELGAR MD ([id number]) on 06/17/2016 Diagnosis Line: 9:38:39 AM INTERPRETING MD: TALIA PARK
--- NOTE | ~2016-06-14 | FU ---
[facility] Nutrition Therapy DATE: 06/17/16 Patient: DARIO DAVIS Physician: MARCO ANTONIO Address: [facility] Room/Bed: [address] [place] [address], Zip: [place] [address] Admit Date: 06/14/16 Date of : [birth year] Height: 5 3 Weight: 319 145 NUTRITION MONITORING/FOLLOW-UP: Reason: Nutrition follow up Anthropometrics: Wt 06/17: 145 kg Labs: Cl- 96 Gluc 131 Creat 1.6 Ca++ 7.9 GFR 36.7 Meds: Pepcid, furosemide, zofran I&O's: 1440/2650, last BM 06/17 Skin: Previously noted h/o stage IV sacral decubitus ulcer is now healing to a stage I Edema: none noted Diet: Mechanical soft Assessment: Chart reviewed, events noted. Pt has been transfered to and ordered a mechanical soft diet. RD spoke with the pt at bedside. Pt reports having a good appetite and consuming 50-100% of meals. Pt voiced desire to lose weight. RD provided heart healthy, weight loss diet education and discussed how she could implement strategies at the MI. Pt was appreciative, and denied having any further questions. Dx: Inadequate oral intake RT intubation AEB NPO- RESOLVED Obesity RT lifestyle AEB BMI 57.4- ACTIVE Intervention: 1. Mechanical soft diet- add heart healthy Monitoring, Evaluation and Goals: 1. EN- RESOLVED 2. Oral intake; consume 50-75% of meals- MET 3. Labs; WNL- NOT MET 4. Weight; promote gradual weight loss- IN PROGRESS/ MET Recommendations: 1. Continue current diet, adding heart healthy diet restriction to promote gradual weight loss towards a healthy BMI. [facility] Nutrition Therapy DATE: 06/17/16 Patient: DARIO DAVIS Physician: MARCO ANTONIO Address: [address] [place] [address] Room/Bed: [address] [place] [address], Zip: [place] [address] Admit Date: 06/14/16 Date of : 42 Height: 5 3 Weight: 319 145 Status: Pt is at mild nutritional risk. RD will follow up per protocol. Respectfully, PRATEEK L AMY, RD, LD [employer] [facility] [employer] cc: client file
--- NOTE | ~2016-06-14 | CO ---
Unit #: [id number] #: [id number] Patient: DARIO DAVIS [id number] [address] [place], [place] [address] [id number] I MR#: [id number] NAME: DARIO DAVIS ROOM: 20990 Age: 75 Sex: F Admission Date: 06/14/2016 : 1940 Attending Physician: Ivy Garcia M.D. Primary Care Physician: Ivelisse Brush [facility] CONSULTATION REPORT REASON FOR CONSULTATION Acute respiratory failure, critical care management. CHIEF COMPLAINT Lethargy, weakness, altered mental status. HISTORY OF PRESENT ILLNESS Patient presented with the complaint of shortness of breath, lethargy, weakness. Was found to be hypoxic. She does have a past medical history significant for colostomy, immobility, degenerative joint disease and also has a history of pulmonary hypertension, sleep apnea. Has a history of left-sided nephrectomy, cholecystectomy. I am seeing the patient at bedside. Currently lethargic, on BiPAP. REVIEW OF SYSTEMS Unobtainable. PAST MEDICAL HISTORY As described above. SURGICAL HISTORY 1. Nephrectomy. 2. Cholecystectomy. 3. Abdominal hysterectomy. ALLERGIES No known drug allergies. MEDICATIONS Celebrex, chlorophyl, Flonase, Lasix, hydrocodone, Claritin, magnesium, [place] Nasal [place], simethicone, DuoNeb. PHYSICAL EXAM VITAL SIGNS: Temperature is 98, pulse is 54, blood pressure 113/67. NEUROLOGIC: She is lethargic. CVS: S1 + S2. RESPIRATORY: Bilateral decreased air entry. ABDOMEN: Soft. Bowel sounds positive. EXTREMITIES: Positive lower extremity edema. DIAGNOSTIC STUDIES LABS: Blood gas - pH of 7.19, pCO2 is 84, pO2 is 90. Potassium of 7.9, creatinine is 3.5. BNP 1,317. White count 13, hemoglobin 11, platelet count 228. Unit #: [id number] #: [id number] Patient: DARIO DAVIS IMAGING: Chest x-ray - bilateral pulmonary edema. ASSESSMENT 1. Acute respiratory failure, hypercapnic 2. Severe respiratory acidosis. 3. Acute kidney injury. 4. Hyperkalemia. 5. Obesity. 6. Obstructive sleep apnea. PLAN Plan is to continue BiPAP, repeat blood gas. If not improving, will be intubated. Broad-spectrum IV antibiotics for possible aspiration and IV fluids per nephrology. Plan for hemodialysis. Dialysis catheter has been placed. Troponin, two-D echo. GI and DVT prophylaxis. Bronchodilators. Thank you very much for this consultation. NOTE: Total critical care time - 75 minutes in direct critical care of this patient. Dictated by... Serafin Perkins TD: 06/14/2016 17:34 JOB #: [id number] CONSULTATION REPORT Page 1 of 1 X Aniyah Braden MD X CONSULTATION REPORT
--- NOTE | ~2016-06-14 | OR ---
Unit #: [id number] #: [id number] Patient: DARIO DAVIS [id number] [address] [id number] I MR#: [id number] NAME: DARIO DAVIS ROOM: [facility] Date of Procedure: 06/14/2016 Admission Date: 06/14/2016 Surgeon: Aniyah Braden M.D. : 1940 Attending Physician: Ivy Garcia M.D. Primary Care Physician: [facility] PROCEDURE OPERATIVE NOTE PROCEDURE PERFORMED Right-sided Shiley placement. INDICATION FOR PROCEDURE Renal failure. PREPROCEDURE DIAGNOSIS Renal failure. POSTPROCEDURE DIAGNOSIS Renal failure. DETAILS OF THE PROCEDURE After placing the patient in proper position, we prepped the right side of neck with ChloraPrep. Under all aseptic measures, with modified Seldinger technique with ultrasound guidance, a 16 cm dialysis catheter placed in the right internal jugular vein. Guidewire was removed in total All 3 ports flushed and working. Line was secured with [address] Post procedure chest x-ray ordered. Patient tolerated procedure very well. Dictated by... Serafin Perkins/oliver TD: 06/14/2016 17:47 JOB #: [id number] PROCEDURE OPERATIVE NOTE Page 1 of 1 X Aniyah Braden MD X PROCEDURE OPERATIVE NOTE
--- NOTE | ~2016-06-14 | EKG ---
PATIENT: DARIO DAVIS UNIT #: [id number] Ventricular Rate: 55 BPM Atrial Rate: 55 BPM P-R Interval: 222 ms QRS Duration: 112 ms Q-T Interval: 486 ms QTC Calculation(Bezet): 464 ms P Zap: 32 degrees Calculated R Zap: 138 degrees Calculated T Zap: -60 degrees Diagnosis Line: Sinus bradycardia with sinus arrhythmia with 1st Diagnosis Line: degree A-V block Diagnosis Line: Right ventricular hypertrophy with repolarization Diagnosis Line: abnormality Diagnosis Line: T wave abnormality, consider inferior ischemia Diagnosis Line: T wave abnormality, consider anterior ischemia Diagnosis Line: Abnormal ECG Diagnosis Line: When compared with ECG of 14-JUN-2016 13:13, Diagnosis Line: (unconfirmed) Diagnosis Line: No significant change was found Diagnosis Line: Confirmed by ANTONI WINTER MD ([id number]) on 06/14/2016 Diagnosis Line: 10:54:57 PM INTERPRETING MD: MAGGY PARK
--- NOTE | ~2016-06-14 | CR72 ---
[facility] A Service of [facility] RADIOLOGY TEXT RESULTS PATIENT: DARIO DAVIS LOCATION: A 314-01 : 42 UNIT #: [id number] AGE: [address]: Ivy Garcia MD SEX: F ORDER DR: [id number] [facility] [address] [facility]. [place], [place] [address] [id number] I MR#: [id number] Acc #: [id number] NAME: DARIO DAVIS : 1940 SEX: F STUDY DATE/TIME: 06/15/2016 4:46 UNIT: [facility] ROOM: [facility] STUDY DESCRIPTION: CR Chest Single View Portable Attending Physician: Ivy Garcia M.D. Ordering Physician: Aniyah Braden M.D. Primary Care Physician: [facility] MEDICAL IMAGING REPORT This report is preliminary unless electronic signature is present EXAM AP portable chest dated 06/15/2016 at 0446 HISTORY Respiratory failure. Symptoms began 06/14/2016. Cardiac catheterization 2 weeks ago. COMPARISON AP portable chest 06/14/2016. FINDINGS Low volume inspiration. The study is attenuated by body habitus. Stable cardiac enlargement. ET tube tip projects approximately 1.5 cm above the level of the сергей. Right IJ central line extends to the upper right atrial region. No pneumothorax is visible. Probably mild central vascular congestion versus central bronchovascular crowding. Suspected retrocardiac left lower lobe atelectasis or infiltrate, although the left base is obscured by the patient's cardiac silhouette. IMPRESSION 1. No significant change compared to 06/14/2016. 2. Suspected retrocardiac left basilar atelectasis or infiltrate, although this region is obscured by the patient's stable enlarged cardiac silhouette. 3. The supporting lines and tubes appear stable. No pneumothorax is seen. Dictated by... Dayana Persaud M.D. THIS IS AN ELECTRONICALLY VERIFIED REPORT Dayana Persaud M.D. at 06/16/2016 9:59 PM LLH/aa STS. [facility] A Service of [facility] RADIOLOGY TEXT RESULTS PATIENT: DARIO DAVIS LOCATION: [facility] 314-01 : 42 UNIT #: [id number] AGE: [address]: Ivy Garcia MD SEX: F ORDER DR: TD: 06/15/2016 08:55 JOB #: [id number] MEDICAL IMAGING REPORT Page 1 of 1 COPY
--- NOTE | ~2016-06-14 | CO ---
Unit #: [id number] #: [id number] Patient: DARIO DAVIS [id number] [address] [address] [id number] I MR#: [id number] NAME: DARIO DAVIS ROOM: [facility] Age: 75 Sex: F Admission Date: 06/14/2016 : 1940 Attending Physician: Ivy Garcia M.D. Primary Care Physician: [facility] Consultation Date: 06/14/2016 CONSULTATION REPORT REASON FOR CONSULT Acute renal failure, hyperkalemia. Thank you very much for asking us to see this patient in consultation. HISTORY OF PRESENT ILLNESS Ms. Dario Davis is a 75-year-old female, who was here from 05/30/2016 to 06/03/2016, where she apparently was diagnosed with atrial flutter. While she was here, she was started on flecainide and Eliquis before she was discharged. She also had a heart catheterization, which was negative for any disease as well as felt to have gastroesophageal reflux disease and was started on a PPI at that time as well, who was discharged again on 06/03/2016 with a creatinine of 1.0. She presented here with decreased mental status, weakness, and increased shortness of breath upon presentation. Again, the patient was upon here noted to have a potassium of 7.9, BUN 35, and creatinine of 3.5. Because of this, I was asked to see the patient. The patient currently is arousable, and she is alert and oriented, but quickly falls back to sleep. PAST MEDICAL HISTORY History of sacral decub in the past, status post diverting colectomy in the past, history of degenerative disk disease. She is status post left nephrectomy in the past, status post appendectomy, status post cholecystectomy, history of atrial flutter, history of gastroesophageal reflux disease, history of obstructive sleep apnea, history of osteoarthritis. SOCIAL HISTORY She is currently living in a residential. She does not smoke. She was a previous smoker. MEDICATIONS Her medicines there include magnesium, Flonase, Senokot, Claritin, metoprolol 25 mg b.i.d., Lipitor 80 mg a day, Lasix 20 mg a day, aspirin 81 mg a day, [place] p.r.n. for pain, Protonix 40 mg a day, multivitamin a day. She was on flecainide 50 mg b.i.d. there as well, Ativan 0.5 b.i.d., and Eliquis 15 mg b.i.d. as well there. FAMILY HISTORY Noncontributory. REVIEW OF SYSTEMS Again, very difficult to assess. She keeps falling back to sleep, but she Unit #: [id number] #: [id number] Patient: DARIO DAVIS presented here with shortness of breath. She denied any severe abdominal pain, nausea, vomiting, or diarrhea, although she has an ostomy. PHYSICAL EXAMINATION GENERAL: Again, she is alert, but falls back to sleep. She is able to answer some questions and she appears to understand the questions. VITAL SIGNS: Her temperature is 98.2, pulse 54, blood pressure is 113/67. HEENT: She is normocephalic and atraumatic. Pupils are equal, round, and reactive to light. Extraocular muscles are intact. Hearing appears to be normal. Mouth is dry. No erythema. No exudate. NECK: Supple. No adenopathy. CARDIAC: She does have a regular rhythm without a rub currently. No S3 or S4, although little bradycardic. LUNGS: Decreased breath sounds at the bases. ABDOMEN: Very obese. Bowel sounds positive. Limited exam. She also has an ostomy in her left lower quadrant. EXTREMITIES: Her legs are very large. Appears to have some edema. SKIN: No acute rashes. NEUROLOGIC: She is alert and oriented, but again somnolent. : Deferred. DIAGNOSTIC STUDIES CARDIOVASCULAR STUDIES: EKG shows some sinus bradycardia with possible first degree block. I do not see any major peaked T-waves at this time. IMAGING STUDIES: I do not see a chest x-ray yet. LABORATORY RESULTS: Her sodium is 135, potassium 7.9, chloride is 95, bicarb is 31, BUN and creatinine are 35 and 3.5, glucose 145. BNP 1317. Lactic acid 1.3. INR is 1.4. Calcium 7.8, albumin is 3.4. Liver function tests are increased, which is new. Hemoglobin 11, white count 13,300, platelets 228,000. ASSESSMENT AND PLAN 1. Hyperkalemia. This patient with increased potassium, probably related to her acute renal failure. I do not see any medicines that she is on that has caused her hyperkalemia and she actually is not severely acidotic, although I do not have an ABG on her at this time. We have discussed it with her. We will plan on emergent hemodialysis after line placement in order to improve her potassium. She has been ordered Kayexalate, IV bicarb, IV calcium, etc., in the emergency room. 2. Acute kidney injury. The patient had normal creatinine on 06/02/2016, up to 3.5 now. Certainly from heart catheterization, she could have some contrast-induced nephropathy. She also could have PPI-induced renal failure versus some sort of acute interstitial nephritis versus other. Certainly, we will have to place Hyatt catheter. Check UA, culture and sensitivity, urine sodium, urine eosinophils. Check bilateral renal ultrasound. Again, emergent hemodialysis due to hyperkalemia and we will continue to follow. See how her output is, etc. Certainly, we would avoid vancomycin and aminoglycosides if possible. We also would not put her back on PPI, but mainly Pepcid if possible. We would recommend avoiding non-steroidals, contrast dye, and other nephrotoxins. 3. Obesity with obstructive sleep apnea. 4. Increased shortness of breath. Questionable related to heart failure versus pulmonary process versus other. We will try to remove a couple of liters on dialysis due to her breathing issues, although I do not know what her true volume status is at this time. 5. History of sacral decub, status post colostomy. Unit #: [id number] #: [id number] Patient: DARIO DAVIS 6. She is status post left nephrectomy. Unsure exact cause of it at this time. When she is more alert, we will ask her these questions. Dictated by... Ravin Smith M.D. SHUBHAM/josseline TD: 06/14/2016 21:56 JOB #: [id number] CONSULTATION REPORT Page 1 of 1 X Addison Smith MD CONSULTATION REPORT
--- NOTE | ~2016-06-14 | DS ---
Unit #: [id number] #: [id number] Patient: DARIO DAVIS [id number] [facility]. [place], [place] [address] [id number] I MR#: [id number] NAME: DARIO DAVIS ROOM: 314 Age: 75 Sex: F Admission Date: 06/14/2016 : 1940 Discharge Date: 06/18/2016 Attending Physician: Ivy Garcia M.D. Primary Care Physician: Ivelisse Brush [facility] DISCHARGE SUMMARY REASON FOR ADMISSION Acute hypoxic/hypercapnic respiratory failure. HISTORY OF PRESENT ILLNESS/HOSPITAL COURSE Please see history and physical for complete details of initial part of hospital stay. In regards to her respiratory failure, Dr. [facility] were consulted. The patient was subsequently initially placed on BiPAP. Her respiratory status was compromised. She was later intubated and placed on ventilatory support and placed in the intensive care unit. Gradually, she was extubated and placed on telemetry floor. Her respiratory status has improved. She was placed on prophylactic IV antibiotics, Solu-Medrol and aerosol solution during that particular time. Today, at the time of discharge, she will be given a prescription for Augmentin as well as ongoing DuoNeb aerosol solution. It was also noted that she was in acute renal failure with creatinine of 3.5, potassium of 7.9, Dr. Smith was subsequently consulted. The patient underwent stat hemodialysis after Shiley placement. This morning, creatinine now stands at 1.4, her baseline is likely 1.2, her potassium at the time of discharge is 4.0. Nephrology services has maintained the patient on Lasix while here and at the time of discharge, nephrology services will be evaluating medications prior to discharge. Blood cultures have not yielded any acute bacterial growth. We did place consultation to [facility] as in the past the patient underwent a colostomy to help in the aid and healing of a stage IV sacral decubitus ulcer. On examination, the patient only has minimal erythema in the associated area likely consistent with stage I and in consideration of possible reversal of this colostomy, consultation was placed to Dr. Hairston and Aurelia. At this point in time, the patient stated that she no longer wished to have the colostomy reversed and that she wishes to go back to the rehab facility for ongoing care. The patient will be discharged back to the rehab facility for continuing care. FINAL DISCHARGE DIAGNOSES 1. Acute kidney injury. 2. Hyperkalemia on admission. 3. Recent hospital admission, May 30, secondary to acute coronary Unit #: [id number] #: [id number] Patient: DARIO DAVIS syndrome, status post cardiac catheterization. 4. Nausea and vomiting on admission, now resolved. 5. Acute respiratory failure, now improved. 6. Hypertension history. 7. Chronic thrombocytopenia, baseline platelets approximately 130,000. 8. Chronic kidney disease, creatinine close to 1.2. 9. Morbid obesity. 10. Obstructive sleep apnea. 11. Prior history of infected stage IV sacral decubitus ulcer, now healed. 12. Prior history of diastolic dysfunction. 13. Prior history of left nephrectomy. FINAL DISCHARGE MEDICATIONS 1. DuoNeb aerosol solution q.6h scheduled 2. Lasix 40 mg p.o. b.i.d. 3. Lipitor 20 mg p.o. daily 4. Augmentin 875 mg p.o. b.i.d. x5 days 5. Pepcid 20 mg p.o. daily 6. Zofran 4 mg p.o. q.6 p.r.n. daily 7. Multivitamin DISCHARGE CONDITION Stable. DISCHARGE DISPOSITION Back to rehab for ongoing care. Dictated by... Ivy Garcia M.D. DOUGLAS/maricruz TD: 06/18/2016 11:11 JOB #: [id number] DISCHARGE SUMMARY Page 1 of 1 X Ivy Garcia MD X DISCHARGE SUMMARY
--- NOTE | ~2016-06-14 | CR72 ---
[facility] A Service of [facility] RADIOLOGY TEXT RESULTS PATIENT: DARIO DAVIS LOCATION: CICCU2 CICCU2-10 : 42 UNIT #: [id number] AGE: [address]: Ivy Garcia MD SEX: F ORDER DR: [id number] [facility] [address] [place], [place] [address] [id number] MR#: [id number] Acc #: [id number] NAME: DARIO DAVIS : 1940 SEX: F STUDY DATE/TIME: 06/14/2016 13:45 UNIT: TAJ ROOM: STUDY DESCRIPTION: CR Chest Single View Portable Attending Physician: Wenceslao Cardoso M.D. Ordering Physician: Wenceslao Cardoso M.D. Primary Care Physician: [facility] MEDICAL IMAGING REPORT This report is preliminary unless electronic signature is present EXAM Portable AP view of the chest COMPARISON January 18, 2014 and January 16, 2014. INDICATIONS 75-year-old female with dyspnea today. FINDINGS Exam is limited by poor inspiratory effort. There are right perihilar opacities, which would seem to favor bronchovascular crowding. Developing atelectasis or pneumonia cannot entirely be excluded. There may be minimal increased left basilar opacity, which would seem to favor atelectasis. Small left pleural effusion cannot be excluded given the prominent density in the left lower chest favored to represent summation artifact of the patient's soft tissues and cardiac shadow. No evidence of pneumothorax. IMPRESSION Diminished lung volumes from comparison with increasing right perihilar opacities favored to represent bronchovascular crowding and/or atelectasis. Correlation to exclude signs of pneumonia recommended. Similarly, there may be increased minimal left basilar opacity not well evaluated given summation artifact of the patient's soft tissues and enlarged heart shadow. Left basilar atelectasis, pneumonia or pleural effusion cannot entirely be excluded but are not favored given technical factors. Clinical correlation recommended. Dictated by... Junior Ellsion M.D. [facility] A Service of [facility] RADIOLOGY TEXT RESULTS PATIENT: DARIO DAVIS LOCATION: [facility] CICCU2-10 : 42 UNIT #: [id number] AGE: [address]: Ivy Garcia MD SEX: F ORDER DR: THIS IS AN ELECTRONICALLY VERIFIED REPORT Junior Ellison M.D. at 06/15/2016 3:44 PM KAYLEE/marcial TD: 06/14/2016 16:40 JOB #: [id number] MEDICAL IMAGING REPORT Page 1 of 1 COPY
--- NOTE | ~2016-06-14 | US84 ---
[id number] [facility]. [facility] [address] [place], [place] [address] [id number] I MR#: [id number] Acc #: [id number] NAME: DARIO DAVIS : 1940 SEX: F STUDY DATE/TIME: 06/14/2016 14:08 UNIT: CEDOF ROOM: [id number] STUDY DESCRIPTION: US LE Veins Complete Donal Stdy Attending Physician: Ivy Garcia M.D. Ordering Physician: Wencselao Cardoso M.D. Primary Care Physician: [facility] MEDICAL IMAGING REPORT This report is preliminary unless electronic signature is present EXAM Bilateral lower extremity duplex Doppler venous ultrasound COMPARISON January 17, 2014 INDICATION 75-year-old female with bilateral lower extremity pain and dyspnea for 1 day. FINDINGS Exam is limited by patient body habitus causing under-penetration. In particular, the right popliteal, distal greater saphenous, posterior tibial, peroneal and anterior tibial veins are not well seen. The right proximal superficial femoral vein and deep femoral vein are difficult to see on centeno-scale imaging but appear to be compressible and demonstrate internal color flow. The mid and distal superficial femoral veins on the right are fully compressible with internal color flow. The right common femoral and proximal greater saphenous veins are fully compressible with internal color flow. Left superficial femoral, deep femoral, common femoral, popliteal veins appear fully compressible with internal color flow. The distal left greater saphenous vein, posterior tibial, peroneal and anterior tibial veins are not well seen. IMPRESSION The exam is limited by patient body habitus. Several vein segments are not well seen bilaterally, particularly from the level of the knee inferiorly. No evidence of deep venous thrombosis is seen on this exam. Clinical correlation recommended. Dictated by... Junior Ellison M.D. THIS IS AN ELECTRONICALLY VERIFIED REPORT Junior Ellison M.D. at 06/18/2016 8:23 AM Sung TD: 06/14/2016 17:06 JOB #: [id number] MEDICAL IMAGING REPORT Page 1 of 1 COPY
--- NOTE | ~2016-06-14 | A ---
[facility] Nutrition Therapy DATE: 06/15/16 Patient: DARIO DAVIS Physician: MARCO ANTONIO Address: [address] [place] [address] Room/Bed: [address], Zip: [place] [address] Admit Date: 06/14/16 Date of : 42 Height: 5 3 Weight: 324 147 NUTRITIONAL ASSESSMENT: REASON: NPO IN ICU ASSESSMENT, ALSO HIGH BMI DOCUMENTATION PT IS 75 Y.O. FEMALE ADMITTED FOR SOA, AMS PMH: IMMOBILIZATION SYNDROME, GERD, KYLE, AFIB, HLD, HTN, JORDIN, STAGE 4 SACRAL DECUBITUS ULCER S/P DIVERTING COLOSTOMY, CHOLY Anthropometrics: 5'3", WT: 324# (147 KG), BMI: 57.4, 281%IBW Labs: GLU: 159, BUN: 24, CREAT: 2.2, CA+:7.8, ALB: 3.4, AST: 139, ALT: 135, LIPASE: 20, GFR: 25.0 Meds: PROPOFOL (CURRENTLY OFF), FENTANYL, PROTONIX, PEPCID I/O & Bowel function: 122/1270 Skin Integrity: NO KNOWN SKIN ISSUES Estimated Nutrition Needs: 5590-6706 KCAL (12-15 KCAL/KG BW) 78-130 G PRO (1.5-2.5 G PRO/KG IBW) FLUIDS CONSISTENT W/KCAL NEEDS OR MANAGE PER MD Assessment: CHART REVIEWED AND EVENTS NOTED. PT SEEN FOR NPO IN ICU. PT CURRENTLY INTUBATED AND SEDATED AT TIME OF VISIT. PER RN AND CHART, PLANS IN PLACE FOR WEAN TRIAL THIS AM. ?EMERGENT HD PLANS IN PLACE. NO FAMILY IN ROOM AT TIME OF VISIT. RD TO FOLLOW AND MAKE RECOMMENDATIONS BELOW. Dx: INADEQUATE ORAL INTAKE R/T INTUBATION AEB NPO STATUS. 2. OBESITY R/T LIFESTYLE, DIET AEB BMI OF 57.4. Intervention: 1. NPO Monitoring, Evaluation and Goals: 1. ENTERAL NUTRITION; PROVIDE ~80-100% ESTIMATED NUTRIENT NEEDS AT GOAL X 24 HOURS 2. ORAL INTAKE; ADVANCE DIET PER TUBER HELPER + TOLERATE MEALS W/NO C/O N/V/D (PO>50%) 3. LABS; WNL 4. WEIGHTS; PROMOTE GRADUAL WEIGHT LOSS MONITOR: [facility] Nutrition Therapy DATE: 06/15/16 Patient: DARIO DAVIS Physician: MARCO ANTONIO Address: [address] [place] [address] Room/Bed: [address], Zip: [place] [address] Admit Date: 06/14/16 Date of : 42 Height: 5 3 Weight: 324 147 -WEIGHTS -LABS -PLANS FOR SUPPORT -EXTUBATION/TUBER HELPER? Recommendations: 1. ONCE MEDICALLY FEASIBLE AND PT EXTUBATED, ADVANCE DIET PER TUBER HELPER + CC+HH TO PROMOTE GRADUAL WEIGHT LOSS TOWARDS HEALTHY BMI (19.0-25.0) OR +/-10%IBW 2. IF PT REMAINS INTUBATED >24 HOURS, CONSIDER PLACING DHT AND BEGIN ALTERNATIVE NUTRITION SUPPORT OF VITAL HIGH PROTEIN @ 20 ML/HR, ADVANCE 10 ML q 4 HOURS TO GOAL RATE OF 65 ML/HR -PROVIDES 1560 KCAL, 136 G PRO, 1310 ML FREE H20 ADD FREE H20 FLUSHES PER RD WILL F/U PER PROTOCOL PT IS MOD/SEVERELY COMPROMISED Respectfully, MURALI DUMAS MS, RD, LD [employer] [facility] [employer] cc: client file
--- NOTE | ~2016-06-14 | HP ---
Unit #: [id number] #: [id number] Patient: DARIO DAVIS [id number] [address] [address] [id number] I MR#: [id number] NAME: DARIO DAVIS [facility]OM: [facility] Age: 75 Sex: F Admission Date: 06/14/2016 : 1940 Attending Physician: Ivy Garcia M.D. Primary Care Physician: Ivelisse [facility] HISTORY AND PHYSICAL REASON FOR ADMISSION Acute hypoxic/hypercapnic respiratory failure. HISTORY OF PRESENT ILLNESS Patient is a 75-year-old female who was actually transferred from half-way secondary to difficulty with breathing, as well as chest pressure and/or discomfort. She had profound weakness, which was documented by previous records. Initially her O2 saturation w as 77% on room air. She was initially placed on O2 nasal cannula, then BiPAP. ABG showed worsening, and subsequently, she was intubated by Dr. Braden in the emergency room. At the present time she is currently intubated. Initial laboratory studies also yield an elevated potassium of 7.9, elevated creatinine of 3.5; therefore, Dr. Smith was also consulted. The patient is currently undergoing STAT hemodialysis, as well. PAST MEDICAL HISTORY 1. Recent hospital admission May 30 to June 02, 2016. At that time diagnosed with acute coronary syndrome status post cardiac catheterization through that hospital admission. 2. Hyperkalemia. 3. Nausea and vomiting. 4. Decreased ostomy output. 5. Hypertension. 6. Chronic thrombocytopenia, discharge platelet count at that time 130,000. 7. Acute kidney injury. Discharge creatinine at that time 1. 8. Normocytic anemia. 9. Chronic immobility. 10. Morbid obesity. 11. Probable obstructive sleep apnea. 12. Degenerative joint disease. 13. Infected stage 4 sacral decubitus ulcer. 14. Hyperlipidemia. 15. Diastolic dysfunction. 16. Elevated right ventricular systolic pressure. 17. Left nephrectomy. 18. Cholecystectomy. 19. Total abdominal hysterectomy. 20. Wide debridement of sacral decubitus ulcer followed by exploratory laparotomy and sigmoid loop colostomy in past. ALLERGIES Unit #: [id number] #: [id number] Patient: DARIO DAVIS No known drug allergies. HOME MEDICATIONS 1. DuoNeb aerosol solution. 2. Magnesium oxide. 3. Flonase. 4. Simethicone. 5. Claritin. 6. Metoprolol. 7. MiraLAX. 8. Lasix. 9. Lipitor. 10. Aspirin. 11. [place]. 12. Protonix. 13. Daily multivitamin. FAMILY HISTORY Reviewed. Noncontributory. Not pertinent. SOCIAL HISTORY Resides at a half-way. She has a wheelchair and walker. No alcohol use. Reformed tobacco abuse. CODE STATUS She is full code. REVIEW OF SYSTEMS Twelve points otherwise negative except for those positive, noted in the HPI. PHYSICAL EXAMINATION VITAL SIGNS: Upon initial evaluation, temperature 98.2, pulse 54, respiratory rate 29, blood pressure 113/67. GENERAL APPEARANCE: Patient is a morbidly obese 75-year-old female who was using accessory muscles to breathe initial part of hospital/ER course. HEAD EXAM: Atraumatic, normocephalic. EAR EXAM: Tympanic membranes do not reveal any erythema or injection. NECK EXAM: Supple. CVS: S1, S2. No murmur heard. RESPIRATORY: Prolonged expiration with very poor air exchange noted. GI/ABDOMEN: Distention noted. Nontender. LOWER EXTREMITY: Lower extremity edema, 1 to 2+, noted. NEUROLOGIC EXAM: Patient currently intubated. While she was initially evaluated in the ER, she was alert and oriented x1. INITIAL ER COURSE Patient received Solu-Medrol, Lasix, Kayexalate, 1 amp of bicarb, 1 amp of calcium gluconate, Lovenox 1 mg/kg subcu x1. Consultations were placed to Dr. Braden, as well as Dr. Smith. Both services have seen and evaluated the patient. DIAGNOSTIC STUDIES INITIAL LABORATORY STUDIES: As mentioned above. Also, include a BMP showing a potassium of 7.9, creatinine of 3.5 (baseline 1), AST and ALT of 139 and 135 (I believe baseline is normal), procalcitonin 0.15. Urinalysis, initial, 3+ leukocyte esterase, 2+ blood, 1 urobilinogen, trace protein. Unit #: [id number] #: [id number] Patient: DARIO DAVIS IMAGING: Chest x-ray does reveal diminished lung volumes. Correlation to exclude possible pneumonia. INITIAL ADMISSION DIAGNOSES 1. Acute kidney injury. 2. Hyperkalemia. 3. Acute hypoxic/hypercapnic respiratory failure. 4. Morbid obesity, severe, with resultant chronic immobility syndrome. 5. Probable UTI. 6. Recent cardiac catheterization approximately 2 weeks ago. 7. Prior history of atrial flutter. Was placed on flecainide, as well as chronic anticoagulation with Eliquis, last hospital admission. 8. Obstructive sleep apnea. 9. COPD. 10. Sacral decubitus ulcer, seen on admission. 11. History of colostomy. PLAN 1. Admission, ICU placement. 2. Chief Operations Officer consult. 3. Nephrology consult. 4. Route laboratory studies. 5. May need LSA evaluation. 6. Blood cultures drawn. 7. Evaluation underway. 8. Dr. Manriquez of cardiology service to be consulted, as well. 9. Further hospital course and/or disposition to follow. Dictated by Serafin He/oliver TD: 06/14/2016 19:09 JOB #: [id number] HISTORY AND PHYSICAL Page 1 of 1 X Ivy Garcia MD X HISTORY AND PHYSICAL
--- NOTE | ~2016-06-14 | US77 ---
[facility] A Service of [facility] RADIOLOGY TEXT RESULTS PATIENT: DARIO DAVIS LOCATION: C3A 314-01 : 42 UNIT #: [id number] AGE: [address]: Ivy Garcia MD SEX: F ORDER DR: [id number] [place] [id number] [facility] [place], [place] [address] [id number] I MR#: [id number] Acc #: [id number] NAME: DARIO DAVIS : 1940 SEX: F STUDY DATE/TIME: 06/15/2016 11:08 UNIT: CICCU2 ROOM: [facility] STUDY DESCRIPTION: US Kidney Bilateral Complete Attending Physician: Ivy Garcia M.D. Ordering Physician: Ravin Smith M.D. Primary Care Physician: [facility] MEDICAL IMAGING REPORT This report is preliminary unless electronic signature is present EXAM Renal ultrasound. INDICATION Acute kidney injury. Patient's labs show a crowding of 2.2 with an estimated GFR of 25. TECHNIQUE Villatoro-scale and color Doppler sonographic images were obtained through the patient's abdomen. FINDINGS Bladder is decompressed with a Hyatt catheter. Right kidney measures 9.3 x 5.0 x 4.6 cm. No obvious hydronephrosis is seen. The patient is status post left nephrectomy. IMPRESSION 1. No obvious abnormality of the patient's right kidney is seen. It was also assessed on a CT from May 30, 2016 and appeared unremarkable at that time. 2. Bladder is decompressed with a Hyatt catheter. 3. Left kidney is surgically absent per history. Dictated by... Izabella Hanson M.D. THIS IS AN ELECTRONICALLY VERIFIED REPORT Izabella Hanson M.D. at 06/17/2016 7:55 AM AFF/tmw TD: 06/15/2016 15:10 [facility] A Service of [facility] RADIOLOGY TEXT RESULTS PATIENT: DARIO DAVIS LOCATION: C3A 314-01 : 42 UNIT #: [id number] AGE: [address]: Ivy Garcia MD SEX: F ORDER DR: YOON #: [id number] MEDICAL IMAGING REPORT Page 1 of 1 COPY
--- NOTE | ~2016-06-14 | CO ---
Unit #: [id number] #: [id number] Patient: DARIO DAVIS [id number] [address] [address] [id number] I MR#: [id number] NAME: DARIO DAVIS ROOM: 314 Age: 75 Sex: F Admission Date: 06/14/2016 : 1940 Attending Physician: Ivy Garcia M.D. Primary Care Physician: [facility] Consultation Date: 06/17/2016 CONSULTATION REPORT CONSULTING PHYSICIAN Dr. Ivy Garcia REASON FOR CONSULTATION Evaluate for possible colostomy takedown. The patient is a 75-year-old black female who was admitted from the longterm with difficulty breathing as well as chest pressure and discomfort. She is now dramatically better. She was also found to have significant renal dysfunction. The patient's past history is remarkable for Dr. Preet Hairston performing a diverting loop sigmoid colostomy to allow healing of a large sacral ulcer which was also debrided at that time. The sacral ulcer has reportedly healed. We are asked at this time to discuss possible colostomy takedown. 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 PAST MEDICAL HISTORY 1. Coronary artery disease. 2. Hyperkalemia. 3. Hypertension. 4. Chronic thrombocytopenia. 5. Renal insufficiency. 6. Chronic immobility. 7. Morbid obesity. 8. Sleep apnea. 9. Degenerative joint disease. 10. Status post left nephrectomy. 11. Cholecystectomy. 12. EVAN. 13. Loop colostomy. MEDICATIONS Please see Med Rec sheet. FAMILY HISTORY Noncontributory. SOCIAL HISTORY No tobacco or alcohol use. REVIEW OF SYSTEMS Negative except as above. Unit #: [id number] #: [id number] Patient: DARIO DAVIS IMMUNIZATION STATUS Unknown. PHYSICAL EXAMINATION GENERAL: Obese black female in no apparent distress. NECK: Supple. No thyromegaly or adenopathy. HEENT: Sclerae not icteric. ABDOMEN: Soft, mildly distended. Well functioning ostomy in the left lower quadrant. No pain or tenderness, no rigidity. DIAGNOSTIC STUDIES LABORATORY: Laboratory studies reveal the patient to have a glucose of 131, BUN 23, creatinine 1.6, CO2 37. White count currently is 13.8 with hemoglobin 9.4, hematocrit 31.2, platelets are 161,000 and MCV of 79.1. IMPRESSION 75-year-old black female with morbid obesity who is minimally ambulatory with significant cardiopulmonary issues and some degree of renal insufficiency. We feel that the patient's risks for surgery may be greater than the patient's benefits in terms of ostomy takedown. This has all been discussed with the patient. She wants to discuss this with her family. She states that if her family wishes to proceed for further evaluation, then she will see Dr. Hairston in the office. Thank you so much for this consultation, we appreciate it. Dictated by... Gerald De La Cruz M.D. LARISSA/chris TD: 06/18/2016 07:27 JOB #: [id number] CONSULTATION REPORT Page 1 of 1 X Gerald De La Cruz MD X CONSULTATION REPORT
--- NOTE | ~2016-06-14 | CR72 ---
[facility] A Service of [facility] RADIOLOGY TEXT RESULTS PATIENT: DARIO DAVIS LOCATION: [place] [address]-10 : 42 UNIT #: [id number] AGE: [address]: Ivy Garcia MD SEX: F ORDER DR: [id number] [facility] [address] [place], [place] [address] [id number] I MR#: [id number] Acc #: [id number] NAME: DARIO DAVIS : 1940 SEX: F STUDY DATE/TIME: 06/14/2016 16:11 UNIT: [facility] ROOM: [facility] STUDY DESCRIPTION: CR Chest Single View Portable Attending Physician: Ivy Garcia M.D. Ordering Physician: Wenceslao Cardoso M.D. Primary Care Physician: [facility] MEDICAL IMAGING REPORT This report is preliminary unless electronic signature is present EXAM Portable chest HISTORY Intubation and central line placement. Shortness of air today. FINDINGS ETT tip is 1.5 cm above the сергей. Right IJ Shiley catheter tip is in the right atrium, 3.5 cm beyond the junction of the SVC and right atrium. No pneumothorax. Dense consolidation or atelectasis in the left base is suspected and has apparently developed since earlier today. Low lung volumes. The remainder of the lungs are clear. Dictated by... Gopi Solares M.D. THIS IS AN ELECTRONICALLY VERIFIED REPORT Gopi Solares M.D. at 06/14/2016 10:59 PM DFL/psc TD: 06/14/2016 19:38 JOB #: [id number] MEDICAL IMAGING REPORT Page 1 of 1 COPY
[2016-06-14 13:09] LABS: ARTERIAL BLD GAS O2 SATURATION 92.6 % (90.0-100.0); ARTERIAL BLOOD GAS CARBOXY HB 1.2 %sat (0.0-9.0); ARTERIAL BLOOD GAS HCO3 32.7 mmol/L; ARTERIAL BLOOD GAS MET HB 0.8 %sat (0.0-2.0); ARTERIAL BLOOD GAS PO2 90.9 mmHg (80.0-100)
[~2016-06-14 13:20] MED LIST changes: +ALBUTEROL1.25 MG/3 INH; +CELEBREX100 MG PO; +CHLOROPHYLL; +CLARITIN10 M3 PO; +FLONASE 0.05% N16 G1; +GAS RELIEF125 MG PO; +HYDROCODON-ACE1 EAC7 PO; +IPRAT-ALBUT 0.5-3 ML INH; +LASIX20 MG PO; +MAGNESIUM OXID420 MG PO; +MINERALS PO; +MIRALAX119 GM PO; +OCEAN NASAL SPRAY INH; +VITAMINS PO
[2016-06-14 13:46] LABS: BASOPHIL% 0.3 % (0-2.5); EOSINOPHIL% 0.2 % (0.0-7.0); HEMATOCRIT 36.7 % (35.0-45.0); LYMPHOCYTE# 1.3 X10e3 (1.0-3.5); LYMPHOCYTE% 9.7 % (17.0-45.0); MEAN CELL VOLUME 80.1 FL (83-96); MEAN CORPUSCULAR HGB CONC 29.9 g/dL (30-36); MEAN PLATELET VOLUME 8.5 FL (6.5-11.5); MONOCYTE% 7.5 % (3.0-12.0); NEUTROPHIL% 82.3 % (40-75); PLATELET COUNT 228 X10e3 (140-420); RED BLOOD COUNT 4.58 X10e (3.90-5.30); RED CELL DISTRIBUTION WIDTH 16.8 % (11.0-15.5); WHITE BLOOD COUNT 13.3 X10e3 (4.0-10.5)
[2016-06-14 13:47] LABS: DIFF IND NO
[2016-06-14 13:57] LABS: INR 1.4; PARTIAL THROMBOPLASTIN TIME 31.2 SECONDS (23.5-31.3); PROTHROMBIN TIME (PATIENT) 14.7 SECONDS (9.6-11.5)
[2016-06-14 14:01] LABS: POC - CKMB 5.7 ng/mL (0.0-7.9); POC - TROPONIN <0.05 ng/mL (<=0.05)
[2016-06-14 14:23] LABS: ALBUMIN SERUM 3.4 g/dL (3.5-5.0); BILIRUBIN, DIRECT 0.3 mg/dL (0.0-0.2); BILIRUBIN,INDIRECT 0.8 mg/dL (0.0-0.9); BILIRUBIN,TOTAL 1.1 mg/dL (0.2-2.0); CALCIUM SERUM 7.8 mg/dL (8.4-10.2); CREATININE SERUM 3.5 mg/dL (0.6-1.4); GLOM FILT RATE Estimated 14.2 mL/min (>60); PROTEIN TOTAL SERUM 6.7 g/dL (6.0-8.3)
[2016-06-14 14:30] LABS: POTASSIUM 7.9 mmol/L (3.5-5.1)
[2016-06-14 14:41] LABS: PROCALCITONIN 0.15 NG/ML
[2016-06-14 15:25] LABS: ARTERIAL BLOOD GAS ALLEN TEST NORMAL; ARTERIAL BLOOD GAS ART SITE RIGHT RADIAL; ARTERIAL BLOOD GAS DELIVERY VENTURI MASK; ARTERIAL BLOOD GAS PCO2 84.3 mmHg (35.0-45.0); ARTERIAL BLOOD GAS pH 7.196 (7.350-7.450); ARTERIAL DRAW? YES
[2016-06-14 15:46] LABS: ARTERIAL BLD GAS O2 SATURATION 76.2 % (90.0-100.0); ARTERIAL BLOOD GAS CARBOXY HB 1.3 %sat (0.0-9.0); ARTERIAL BLOOD GAS HCO3 34.6 mmol/L; ARTERIAL BLOOD GAS MET HB 0.7 %sat (0.0-2.0)
[2016-06-14 15:48] LABS: ARTERIAL BLOOD GAS PCO2 89.3 mmHg (35.0-45.0); ARTERIAL BLOOD GAS pH 7.196 (7.350-7.450)
[2016-06-14 15:49] LABS: ARTERIAL BLOOD GAS PO2 54.6 mmHg (80.0-100); ARTERIAL DRAW? NO
[2016-06-14 16:00] LABS: URINE SOURCE CLEAN CATCH
[2016-06-14 16:09] LABS: URINE APPEARANCE TURBID; URINE BILIRUBIN NEG (NEG); URINE BLOOD 2+ (NEG); URINE COLOR YELLOW; URINE GLUCOSE NEG (NEG); URINE KETONE NEG (NEG); URINE LEUKOCYTE ESTERASE 3+ (NEG); URINE NITRATE NEG (NEG); URINE PROTEIN TRACE (NEG); URINE SPECIFIC GRAVITY 1.013 (1.003-1.035)
[2016-06-14 16:12] LABS: CULTURE INDICATED? YES; URINE BACTERIA AUWI NEG (NEGATIVE); URINE SQUAMOUS EPITHELIAL CELL MOD /[HPF]; UWBCS1 AUWI INNUM (0-5)
[2016-06-14 16:25] LABS: U HYALINE CASTS AUWI 0-2 /[LPF]
[2016-06-14 17:49] LABS: ARTERIAL BLD GAS O2 SATURATION 98.9 % (90.0-100.0); ARTERIAL BLOOD GAS CARBOXY HB 0.7 %sat (0.0-9.0); ARTERIAL BLOOD GAS HCO3 30.2 mmol/L; ARTERIAL BLOOD GAS MET HB 0.7 %sat (0.0-2.0); ARTERIAL BLOOD GAS pH 7.351 (7.350-7.450)
[2016-06-14 17:50] LABS: ARTERIAL BLOOD GAS PCO2 54.6 mmHg (35.0-45.0)
[2016-06-14 17:52] LABS: ARTERIAL BLOOD GAS ALLEN TEST NORMAL; ARTERIAL BLOOD GAS ART SITE RIGHT RADIAL; ARTERIAL BLOOD GAS DELIVERY VENT; ARTERIAL BLOOD GAS VENT MODE A/C; ARTERIAL DRAW? YES
[2016-06-14 19:16] LABS: %MB 0.5 % (0.0-4.0); MB 6.7 ng/ml
[2016-06-15 01:06] LABS: %MB 0.5 % (0.0-4.0); MB 5.4 ng/ml
[2016-06-15 04:21] LABS: ARTERIAL BLD GAS O2 SATURATION 97.9 % (90.0-100.0); ARTERIAL BLOOD GAS CARBOXY HB 0.7 %sat (0.0-9.0); ARTERIAL BLOOD GAS HCO3 27.4 mmol/L; ARTERIAL BLOOD GAS pH 7.502 (7.350-7.450)
[2016-06-15 04:22] LABS: ARTERIAL BLOOD GAS ART SITE LEFT BRACHIAL; ARTERIAL BLOOD GAS DELIVERY VENT; ARTERIAL BLOOD GAS VENT MODE AC; ARTERIAL DRAW? YES
[2016-06-15 05:35] LABS: HEMATOCRIT 30.7 % (35.0-45.0); HEMOGLOBIN 9.4 gm/dL (12.0-16.0); MEAN CELL VOLUME 78.7 FL (83-96); MEAN CORPUSCULAR HEMOGLOBIN 24.1 PG (28-34); MEAN CORPUSCULAR HGB CONC 30.7 g/dL (30-36); MEAN PLATELET VOLUME 9.4 FL (6.5-11.5); RED BLOOD COUNT 3.9 X10e (3.90-5.30); RED CELL DISTRIBUTION WIDTH 16.1 % (11.0-15.5); WHITE BLOOD COUNT 15.8 X10e3 (4.0-10.5)
[2016-06-15 07:10] LABS: BUN/CREATININE RATIO 10.9; CALCIUM SERUM 7.8 mg/dL (8.4-10.2); CREATININE SERUM 2.2 mg/dL (0.6-1.4); MAGNESIUM 1.9 mg/dL (1.6-3.0); PHOSPHOROUS 2.8 mg/dL (2.5-4.6)
[2016-06-15 07:12] LABS: POTASSIUM 4.6 mmol/L (3.5-5.1)
[2016-06-15 09:03] LABS: ARTERIAL BLOOD GAS CARBOXY HB 0.4 %sat (0.0-9.0); ARTERIAL BLOOD GAS HCO3 29.9 mmol/L; ARTERIAL BLOOD GAS MET HB 0.9 %sat (0.0-2.0); ARTERIAL BLOOD GAS PCO2 42.6 mmHg (35.0-45.0); ARTERIAL BLOOD GAS pH 7.454 (7.350-7.450)
[2016-06-15 09:04] LABS: ARTERIAL BLOOD GAS ART SITE RIGHT RADIAL; ARTERIAL BLOOD GAS DELIVERY VENT; ARTERIAL BLOOD GAS VENT MODE CPAP; ARTERIAL DRAW? YES
[2016-06-15] MEDS ORDERED: LISINOPRIL5 MG PO (10:58)
[2016-06-15] MEDS ORDERED: LANTUS100 U/ML SUBQ (10:59)
[2016-06-15] MEDS ORDERED: JANUVIA PO (11:00)
[2016-06-15] MEDS ORDERED: PRAVACHOL80 MG PO (11:00)
[2016-06-15] MEDS ORDERED: METFORMIN HCL750 MG PO (11:01)
[2016-06-16 05:17] LABS: BASOPHIL% 0.1 % (0-2.5); EOSINOPHIL# 0.2 X10e3 (0-0.7); EOSINOPHIL% 1.3 % (0.0-7.0); HEMATOCRIT 31.2 % (35.0-45.0); HEMOGLOBIN 9.4 gm/dL (12.0-16.0); LYMPHOCYTE# 0.5 X10e3 (1.0-3.5); LYMPHOCYTE% 3.8 % (17.0-45.0); MEAN CELL VOLUME 79.1 FL (83-96); MEAN CORPUSCULAR HEMOGLOBIN 23.9 PG (28-34); MEAN CORPUSCULAR HGB CONC 30.2 g/dL (30-36); MONOCYTE# 1.1 X10e3 (0-1.0); MONOCYTE% 7.6 % (3.0-12.0); NEUTROPHIL# 12.1 X10e3 (1.5-7.1); NEUTROPHIL% 87.2 % (40-75); PLATELET COUNT 164 X10e3 (140-420); RED BLOOD COUNT 3.94 X10e (3.90-5.30); RED CELL DISTRIBUTION WIDTH 16.1 % (11.0-15.5); WHITE BLOOD COUNT 13.8 X10e3 (4.0-10.5)
[2016-06-16 05:21] LABS: DIFF IND NO
[2016-06-16 05:52] LABS: BILIRUBIN,TOTAL 0.8 mg/dL (0.2-2.0); BUN/CREATININE RATIO 14.44; CALCIUM SERUM 7.8 mg/dL (8.4-10.2); CREATININE SERUM 1.8 mg/dL (0.6-1.4); GLOM FILT RATE Estimated 31.8 mL/min (>60); MAGNESIUM 1.9 mg/dL (1.6-3.0); PHOSPHOROUS 3.7 mg/dL (2.5-4.6); POTASSIUM 4.1 mmol/L (3.5-5.1); PROTEIN TOTAL SERUM 5.9 g/dL (6.0-8.3)
[2016-06-17 06:46] LABS: BUN/CREATININE RATIO 14.37; CALCIUM SERUM 7.9 mg/dL (8.4-10.2); CREATININE SERUM 1.6 mg/dL (0.6-1.4); GLOM FILT RATE Estimated 36.7 mL/min (>60); MAGNESIUM 2.2 mg/dL (1.6-3.0); PHOSPHOROUS 3.8 mg/dL (2.5-4.6); POTASSIUM 3.9 mmol/L (3.5-5.1)
[2016-06-17 19:33] LABS: SPE A1GLOB (PNL) 0.4 g/dL (0.2-0.3); SPE A2GLOB (PNL) 0.7 g/dL (0.5-0.9); SPE ALB (PNL) 2.9 g/dL (3.8-4.8); SPE BETA 1 GLOBULIN 0.4 g/dL (0.4-0.6); SPE BETA 2 GLOBULIN 0.4 g/dL (0.2-0.5); SPETP (PNL) 5.8 g/dL (6.1-8.1)
[2016-06-18 06:15] LABS: HEMATOCRIT 33.3 % (35.0-45.0); HEMOGLOBIN 10.1 gm/dL (12.0-16.0); MEAN CELL VOLUME 79.1 FL (83-96); MEAN CORPUSCULAR HEMOGLOBIN 24.1 PG (28-34); MEAN CORPUSCULAR HGB CONC 30.5 g/dL (30-36); MEAN PLATELET VOLUME 8.7 FL (6.5-11.5); RED BLOOD COUNT 4.21 X10e (3.90-5.30); RED CELL DISTRIBUTION WIDTH 16.2 % (11.0-15.5)
[2016-06-18 07:31] LABS: BILIRUBIN,TOTAL 0.7 mg/dL (0.2-2.0); BUN/CREATININE RATIO 19.28; CALCIUM SERUM 7.6 mg/dL (8.4-10.2); CREATININE SERUM 1.4 mg/dL (0.6-1.4); GLOM FILT RATE Estimated 43.1 mL/min (>60); MAGNESIUM 1.9 mg/dL (1.6-3.0); PROTEIN TOTAL SERUM 6.6 g/dL (6.0-8.3)
== END 2016-06-18 16:41 | DRG 208 ==
LOC: CED 13:20 → CEDOF 16:20 → CICCU2 17:35 → C3A PCU 06-16 11:57
PROVIDERS: Emergency Medicine; Family Medicine; Internal Medicine Nephrology; Internal Medicine Pulmonary Disease
PROC: 5A1935Z Respiratory Ventilation, Less than 24 Consecutive Hours (ICD-10-PCS; principal; 2016-06-14)
PROC: 0BH17EZ Insertion of Endotracheal Airway into Trachea, Via Natural or Artificial Opening (ICD-10-PCS; 2016-06-14)
PROC: 02HV33Z Insertion of Infusion Device into Superior Vena Cava, Percutaneous Approach (ICD-10-PCS; 2016-06-14)
PROC: B548ZZA Ultrasonography of Superior Vena Cava, Guidance (ICD-10-PCS; 2016-06-14)
PROC: 5A1D00Z (ICD-10-PCS; 2016-06-14)
PROC: B246ZZZ Ultrasonography of Right and Left Heart (ICD-10-PCS; 2016-06-15)
DX: J96.01 Acute respiratory failure with hypoxia (principal); J18.9 Pneumonia, unspecified organism; N17.9 Acute kidney failure, unspecified; L89.151 Pressure ulcer of sacral region, stage 1; I13.0 Hypertensive heart and chronic kidney disease with heart failure and stage 1 through stage 4 chronic kidney disease, or unspecified chronic kidney disease; J81.1 Chronic pulmonary edema; J44.0 Chronic obstructive pulmonary disease with (acute) lower respiratory infection; E87.2 Acidosis; I50.9 Heart failure, unspecified; Z68.43 Body mass index [BMI] 50.0-59.9, adult; J96.02 Acute respiratory failure with hypercapnia; Z87.891 Personal history of nicotine dependence; M62.3 Immobility syndrome (paraplegic); Z93.3 Colostomy status; E66.01 Morbid (severe) obesity due to excess calories; E87.5 Hyperkalemia; I25.10 Atherosclerotic heart disease of native coronary artery without angina pectoris; R11.2 Nausea with vomiting, unspecified; N18.9 Chronic kidney disease, unspecified; D69.6 Thrombocytopenia, unspecified; G47.33 Obstructive sleep apnea (adult) (pediatric); K21.9 Gastro-esophageal reflux disease without esophagitis; M19.90 Unspecified osteoarthritis, unspecified site; E78.5 Hyperlipidemia, unspecified; Z90.5 Acquired absence of kidney; Z90.49 Acquired absence of other specified parts of digestive tract; Z90.710 Acquired absence of both cervix and uterus; Z83.3 Family history of diabetes mellitus
CPT/HCPCS: 36415; 36600; 71010; 76770; 80048; 80053; 80076; 81003; 82308; 82550; 82553; 82803; 83605; 83690; 83735; 83880; 84100; 84165; 84300; 84484; 85025; 85027; 85610; 85730; 86334; 87040; 87086; 87340; 87899; 89190; 92526; 92610; 93005; 93306; 93970; 94002; 94003; 94640; 94660; 94760; 97110; 97161; 99291; C1750; C9113; G8978-GP; G8979-GP; G8996-GN; G8997-GN; G8998-GN; J0610; J1644; J1650; J1940; J2250; J2405; J2543; J2765; J2930; J3475